=== PATIENT | male | born 1970 | race Caucasian/White ===

== ENCOUNTER 2020-01-03 23:41 | Emergency (ER) | payer BC, OTHER, SELFPAY ==
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
== END 2020-01-04 01:42 | disposition home or self-care (01) ==
LOC: ERS 23:41
DX: M25.462 Effusion, left knee (principal); G47.30 Sleep apnea, unspecified; E11.9 Type 2 diabetes mellitus without complications; V86.99XA Unspecified occupant of other special all-terrain or other off-road motor vehicle injured in nontraffic accident, initial encounter

== ENCOUNTER 2020-01-24 05:52 | Observation (INO) | payer BC, OTHER, SELFPAY ==
[2020-01-22 16:26] VITALS: BMI 36.9
[2020-01-24] MEDS ORDERED: Midazolam HCl 2 mg/2 ml Vial ONE (06:39)
[2020-01-24] MEDS ORDERED: Fentanyl 100 MCG/2 ML VIAL ONE ×4 (06:39→11:18)
[2020-01-24] MEDS ORDERED: Vancomycin 1.5 GRAM/300 ML BAG 1.5 GM/300 ML BAG ONE (07:21)
[2020-01-24] MEDS ORDERED: Ropivacaine 0.2% 550 ML 550 ML NERVE BLCK SCH (08:26)
[2020-01-24] MEDS ORDERED: Ondansetron PF 4 MG/2 ML Vial IVP PRN (08:26)
[2020-01-24] MEDS ORDERED: traMADol HCl 50 MG TAB PO PRN ×2 (08:26)
[2020-01-24] MEDS ORDERED: HYDROcodone/Acetaminophen 10/325 mg Tablet PO PRN ×2 (08:26)
[2020-01-24] MEDS ORDERED: Promethazine HCl 25 MG/ML VIAL IM PRN (08:26)
[2020-01-24] MEDS ORDERED: Zolpidem Tartrate 5 MG TAB PO PRN (08:26)
[2020-01-24] MEDS ORDERED: Acetaminophen 325 MG TAB PO PRN (08:26)
[2020-01-24] MEDS ORDERED: Fentanyl 100 MCG/2 ML VIAL IV PRN (08:27)
[2020-01-24] MEDS ORDERED: SUGAMMADEX SODIUM 200 MG/2 ML VIAL ONE (09:34)
[2020-01-24] MEDS ORDERED: HYDROcodone/Acetaminophen 7.5/325 mg Tablet PO PRN ×2 (10:41)
[2020-01-24] MEDS ORDERED: Milk Of Magnesia 30 ML UDCUP PO PRN (10:41)
[2020-01-24] MEDS ORDERED: Morphine 2 MG/ML SYRINGE SLOW IVP PRN (10:41)
[2020-01-24] MEDS ORDERED: Methocarbamol 500 MG TAB PO PRN (10:41)
[2020-01-24] MEDS ORDERED: Morphine 4 MG/ML VIAL SLOW IVP PRN (10:41)
[2020-01-24] MEDS ORDERED: Bisacodyl 10 MG SUPP PR PRN (10:41)
[2020-01-24] MEDS ORDERED: diphenhydrAMINE 50 MG CAP PO PRN (10:41)
[2020-01-24] MEDS ORDERED: Sodium Chloride 0.9% 1,000 ML IV SCH (10:45)
[2020-01-24] MEDS ORDERED: Labetalol HCl 100 MG/20 ML VIAL ONE (11:08)
[2020-01-24] MEDS: Ketorolac Tromethamine 30 MG/ML VIAL IVP SCH ×3 (13:02→23:04)
[2020-01-24] MEDS: CEFAZOLIN 2 GM in Premix Bag 1 BAG IVPB SCH ×2 (15:18→21:20)
[2020-01-24] MEDS ORDERED: Glycopyrrolate 0.2 MG/ML 5 ML SYRINGE ONE (15:29)
[2020-01-24] MEDS ORDERED: Rocuronium Bromide 10 MG/ML (10ML VIAL) ONE (15:29)
[2020-01-24] MEDS ORDERED: Dexamethasone 20 MG/5 ML VIAL ONE (15:29)
[2020-01-24] MEDS ORDERED: Ondansetron PF 4 MG/2 ML Vial ONE (15:29)
[2020-01-24] MEDS ORDERED: Bupivacaine HCl 0.5%/Epinephrine 1:200,000/PF 30 ml Vial ONE (15:29)
[2020-01-24] MEDS ORDERED: PROPOFOL 200 MG/20 ML VIAL ONE (15:29)
[2020-01-24] MEDS ORDERED: Lidocaine 1% PF 5 ML VIAL ONE (15:29)
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
[2020-01-24] MEDS ORDERED: VILAZODONE HCL 40 MG PO SCH (21:00)
[2020-01-24] MEDS ORDERED: Vilazodone Hcl [Viibryd] 40 MG PO SCH (21:00)
[2020-01-24] MEDS: metFORMIN 500 MG TAB PO SCH (21:20)
[2020-01-24] MEDS: Famotidine 20 MG TAB PO SCH (21:20)
[2020-01-25] MEDS: Ketorolac Tromethamine 30 MG/ML VIAL IVP SCH ×3 (05:28→12:09)
[2020-01-25] MEDS: Famotidine 20 MG TAB PO SCH (08:27)
[2020-01-25] MEDS: metFORMIN 500 MG TAB PO SCH (08:27)
[2020-01-25] MEDS ORDERED: Multivit, Therapeutic 1 TAB PO SCH (09:00)
[2020-01-25] MEDS ORDERED: Aspirin 81 mg Enteric Coated Tablet PO SCH (09:00)
[2020-01-25 16:21] VITALS: BP 147/83; TEMP 98.3
== END 2020-01-25 16:40 | disposition home or self-care (01) ==
LOC: SDC 05:52 → SURG A 10:45
PROVIDERS: ADMIT Orthopaedic Surgery; ATTEND Orthopaedic Surgery
PROC: 0MRP47Z Replacement of Left Knee Bursa and Ligament with Autologous Tissue Substitute, Percutaneous Endoscopic Approach (ICD-10-PCS; principal; 2020-01-25)
PROC: 0SBD4ZZ Excision of Left Knee Joint, Percutaneous Endoscopic Approach (ICD-10-PCS; 2020-01-25)
PROC: 3E0T3BZ Introduction of Anesthetic Agent into Peripheral Nerves and Plexi, Percutaneous Approach (ICD-10-PCS; 2020-01-25)
DX: S83.512A Sprain of anterior cruciate ligament of left knee, initial encounter (principal); S83.422A Sprain of lateral collateral ligament of left knee, initial encounter; S83.242A Other tear of medial meniscus, current injury, left knee, initial encounter; S83.282A Other tear of lateral meniscus, current injury, left knee, initial encounter; G89.18 Other acute postprocedural pain; I10 Essential (primary) hypertension; E11.9 Type 2 diabetes mellitus without complications; E78.5 Hyperlipidemia, unspecified; E66.9 Obesity, unspecified; F32.9 Major depressive disorder, single episode, unspecified; F51.04 Psychophysiologic insomnia; Z79.82 Long term (current) use of aspirin; Z79.84 Long term (current) use of oral hypoglycemic drugs; Z79.899 Other long term (current) drug therapy; Z87.891 Personal history of nicotine dependence; Z88.8 Allergy status to other drugs, medicaments and biological substances; Z91.011 Allergy to milk products
CPT/HCPCS: 36416; 96365; 96375; 96376; A4306; C1713; G0378; J0670; J0690; J1100; J1885; J2001; J2250; J2405; J2704; J2795; J3010; J3370

== ENCOUNTER 2022-02-14 12:28 | Inpatient (IN) | payer OTHER, SELFPAY ==
[~2022-02-14 12:28] MED LIST: ISOVUE-370 76%-LOCM 1 ML ONE
[2022-02-14] MEDS ORDERED: Ondansetron PF 4 MG/2 ML Vial ONE (13:01)
[2022-02-14] MEDS ORDERED: Pantoprazole 40 MG VIAL ONE (13:01)
[2022-02-14 13:17] LABS: #Eosinphils 0.2 thou/uL (0.0-0.7); #Lymphocytes 1.6 thou/uL (1.20-3.40); #Monocytes 0.6 thou/uL (0.11-0.59); #Neutrophils 4.8 thou/uL (1.40-6.50); %Basophils 0.5 % (0.0-1.0); %Eosinophils 2.3 % (0.0-10.0); %Lymphocytes 22.2 % (21.0-51.0); %Monocytes 8.8 % (0.0-10.0); %Neutrophils 66.2 % (42.0-75.0); Hemoglobin 11.1 g/dL (14.0-18.0); Mean Corpuscular HGB CONC 34.1 g/dL (32.0-36.0); Mean Corpuscular Hemoglobin 34.7 pg (27.0-31.0); Mean Platelet Volume 7.6 fL (7.4-10.4); Platelet Count 143 thou/uL (130-400); RBC Distribution Width 11.9 % (11.5-14.5); Red Blood Cell (RBC) Count 3.19 mill/uL (4.70-6.10); White Blood Cell (WBC) Count 7.3 thou/uL (4.8-10.8)
[2022-02-14 13:45] LABS: ALT (SGPT) 53 U/L (8-55); AST (SGOT) 94 U/L (5-34); Albumin 3.6 g/dL (3.5-5.0); Alkaline Phosphatase 76 U/L (40-110); Anion Gap 12 mmol/L (10-20); BUN (Urea Nitrogen) 33 mg/dL (8.4-25.7); Bilirubin, Total 2.9 mg/dL (0.2-1.2); Calc. Creatinine Clearance 0 mL/min (70-130); Calcium 8.6 mg/dL (7.8-10.44); Carbon Dioxide 29 mmol/L (22-29); Chloride 90 mmol/L (98-107); Globulin 3.9 g/dL (2.4-3.5); Glucose 140 mg/dL (70-105); Lipase 22 U/L (8-78); Potassium 3.7 mmol/L (3.5-5.1); Protein, Total 7.5 g/dL (6.0-8.3); Sodium 127 mmol/L (136-145)
[2022-02-14] MEDS ORDERED: Acetaminophen 325 MG TAB PO PRN (15:37)
[2022-02-14] MEDS ORDERED: Ondansetron ODT 4 MG TAB PO PRN (15:37)
[2022-02-14] MEDS ORDERED: Acetaminophen 650 MG Suppository PR PRN (15:37)
[2022-02-14] MEDS ORDERED: Ondansetron PF 4 MG/2 ML Vial IVP PRN (15:37)
[2022-02-14] MEDS ORDERED: Lorazepam 1 MG TAB PO PRN (15:43)
[2022-02-14] MEDS ORDERED: Lorazepam 2 MG/ML VIAL IM PRN (15:43)
[2022-02-14] MEDS ORDERED: Electrolyte Replacement Protocol 1 EACH FS SCH (15:45)
[2022-02-14 16:01] VITALS: BMI 37.3
[2022-02-14] MEDS ORDERED: Electrolyte Replacement Protocol FS PRN (16:15)
[2022-02-14] MEDS ORDERED: Folic Acid 1 MG TAB PO SCH (16:15)
[2022-02-14] MEDS ORDERED: Multivit, Therapeutic 1 TAB PO SCH (16:15)
[2022-02-14 16:24] LABS: Hemoglobin 10.6 g/dL (14.0-18.0)
[2022-02-14 16:39] LABS: Bilirubin, Direct 1.3 mg/dL (0.1-0.3); Magnesium 1.7 mg/dL (1.6-2.6); Phosphorus 2.5 mg/dL (2.3-4.7)
[2022-02-14 16:42] LABS: Troponin I Less than 0.010 ng/mL (< 0.028)
[2022-02-14 16:59] LABS: HBCM Index 0.07 S/CO (0-0.79); HBSAg Index 0.34 S/CO (0-0.99); Hep A IgM AB Non-Reactive (NonReactive); Hep A IgM S/CO 0.23 S/CO (0-0.79); Hep B Surf Ag Non-Reactive S/CO (NonReactive); Hepatitis B Core IgM Abs Non-Reactive (NonReactive)
[2022-02-14 17:07] LABS: Hep C IgG Ab Reflex HepC Qnt (NonReactive); Hep C Index 12.24 S/CO (0-0.79)
[2022-02-14] MEDS: Lorazepam 1 MG TAB PO SCH ×2 (17:07→20:27)
[2022-02-14] MEDS: Thiamine HCl 200 MG/2 ML VIAL SLOW IVP SCH (17:08)
[2022-02-14] MEDS: Sodium Chloride 0.9% 1,000 ML IV SCH (17:17)
[2022-02-14 18:41] LABS: Syphilis Antibody Nonreactive (Nonreactive); Syphilis Antibody Index 0.14 S/CO (<1.00 Non-Reactive)
[2022-02-14] MEDS ORDERED: Magnesium 2 GM/50 ML(in water) 2 GM in Premix Bag 1 BAG IVPB SCH (19:15)
[2022-02-14] MEDS: Pantoprazole 40 MG VIAL IVP SCH (20:26)
[2022-02-14 22:07] LABS: Hemoglobin 9.6 g/dL (14.0-18.0)
[2022-02-14 22:14] LABS: Sodium 129 mmol/L (136-145)
[2022-02-15 00:43] LABS: Amphetamine Not Detected (NotDetected); Barbiturates Screen Not Detected (NotDetected); Benzodiazepine Screen Not Detected (NotDetected); Cocaine Metabolite Screen Not Detected (NotDetected); Methadone Not Detected (NotDetected); Methamphetamine Not Detected (NotDetected); Opiate Screen Not Detected (NotDetected); Oxycodone Screen Not Detected (NotDetected); Phencyclidine (PCP) Not Detected (NotDetected); THC/Cannabinoid Screen Not Detected (NotDetected); Tricyclic Screen Not Detected (NotDetected)
[2022-02-15] MEDS: Lorazepam 1 MG TAB PO SCH ×4 (03:45→20:07)
[2022-02-15 04:26] LABS: #Eosinphils 0.2 thou/uL (0.0-0.7); #Lymphocytes 1.8 thou/uL (1.20-3.40); #Monocytes 0.8 thou/uL (0.11-0.59); #Neutrophils 3.7 thou/uL (1.40-6.50); %Basophils 0.7 % (0.0-1.0); %Eosinophils 2.8 % (0.0-10.0); %Lymphocytes 27.7 % (21.0-51.0); %Monocytes 11.5 % (0.0-10.0); %Neutrophils 57.2 % (42.0-75.0); Mean Corpuscular HGB CONC 33.8 g/dL (32.0-36.0); Mean Corpuscular Hemoglobin 34.8 pg (27.0-31.0); Platelet Count 118 thou/uL (130-400); Platelet Morphology Comment Appears Decreased; RBC Distribution Width 12.1 % (11.5-14.5); Red Blood Cell (RBC) Count 2.59 mill/uL (4.70-6.10); White Blood Cell (WBC) Count 6.5 thou/uL (4.8-10.8)
[2022-02-15 04:27] LABS: ALT (SGPT) 49 U/L (8-55); AST (SGOT) 86 U/L (5-34); Albumin 3.2 g/dL (3.5-5.0); Alkaline Phosphatase 64 U/L (40-110); Anion Gap 9 mmol/L (10-20); BUN (Urea Nitrogen) 20 mg/dL (8.4-25.7); Bilirubin, Total 2.1 mg/dL (0.2-1.2); Calc. Creatinine Clearance 192 mL/min (70-130); Calcium 8.1 mg/dL (7.8-10.44); Carbon Dioxide 27 mmol/L (22-29); Chloride 96 mmol/L (98-107); Globulin 3.5 g/dL (2.4-3.5); Glucose 96 mg/dL (70-105); Magnesium 2.1 mg/dL (1.6-2.6); Potassium 3.3 mmol/L (3.5-5.1); Protein, Total 6.7 g/dL (6.0-8.3); Sodium 129 mmol/L (136-145)
[2022-02-15] MEDS: Potassium Chloride 20 MEQ in Premix Bag 1 BAG IVPB SCH ×2 (06:32→08:52)
[2022-02-15] MEDS: Sodium Chloride 0.9% 1,000 ML IV SCH ×2 (06:32→17:34)
[2022-02-15 08:16] LABS: Hemoglobin 9.3 g/dL (14.0-18.0)
[2022-02-15 08:27] LABS: Sodium 130 mmol/L (136-145)
[2022-02-15] MEDS: Multivit, Therapeutic 1 TAB PO SCH (08:57)
[2022-02-15] MEDS: Folic Acid 1 MG TAB PO SCH (08:57)
[2022-02-15] MEDS: Pantoprazole 40 MG VIAL IVP SCH ×2 (08:57→20:07)
[2022-02-15 14:11] LABS: Sodium 132 mmol/L (136-145)
[2022-02-15] MEDS ORDERED: Lorazepam 1 MG TAB PO PRN (15:43)
[2022-02-15 17:06] LABS: Hemoglobin 9.2 g/dL (14.0-18.0)
[2022-02-15] MEDS: Thiamine HCl 200 MG/2 ML VIAL SLOW IVP SCH (17:34)
[2022-02-15 22:37] LABS: Hemoglobin 9.1 g/dL (14.0-18.0)
[2022-02-15 22:53] LABS: Sodium 132 mmol/L (136-145)
[2022-02-16] MEDS: Sodium Chloride 0.9% 1,000 ML IV SCH (02:10)
[2022-02-16] MEDS: Lorazepam 1 MG TAB PO SCH ×2 (03:50→09:57)
[2022-02-16 05:05] LABS: #Eosinphils 0.2 thou/uL (0.0-0.7); #Lymphocytes 1.4 thou/uL (1.20-3.40); #Monocytes 0.7 thou/uL (0.11-0.59); #Neutrophils 3.3 thou/uL (1.40-6.50); %Basophils 0.4 % (0.0-1.0); %Eosinophils 3.4 % (0.0-10.0); %Lymphocytes 25.5 % (21.0-51.0); %Monocytes 12.1 % (0.0-10.0); %Neutrophils 58.7 % (42.0-75.0); Hemoglobin 8.9 g/dL (14.0-18.0); Mean Corpuscular HGB CONC 33.6 g/dL (32.0-36.0); Mean Corpuscular Hemoglobin 34.9 pg (27.0-31.0); Mean Platelet Volume 7.5 fL (7.4-10.4); Platelet Count 122 thou/uL (130-400); RBC Distribution Width 12.1 % (11.5-14.5); Red Blood Cell (RBC) Count 2.56 mill/uL (4.70-6.10); White Blood Cell (WBC) Count 5.6 thou/uL (4.8-10.8)
[2022-02-16 05:10] LABS: ALT (SGPT) 70 U/L (8-55); AST (SGOT) 115 U/L (5-34); Albumin 3.4 g/dL (3.5-5.0); Alkaline Phosphatase 71 U/L (40-110); Anion Gap 12 mmol/L (10-20); BUN (Urea Nitrogen) 9 mg/dL (8.4-25.7); Bilirubin, Total 1.7 mg/dL (0.2-1.2); Calc. Creatinine Clearance 200 mL/min (70-130); Calcium 8.4 mg/dL (7.8-10.44); Carbon Dioxide 26 mmol/L (22-29); Chloride 99 mmol/L (98-107); Globulin 3.6 g/dL (2.4-3.5); Glucose 102 mg/dL (70-105); Potassium 3.8 mmol/L (3.5-5.1); Sodium 133 mmol/L (136-145)
[2022-02-16] MEDS: Folic Acid 1 MG TAB PO SCH (08:10)
[2022-02-16] MEDS: Multivit, Therapeutic 1 TAB PO SCH (08:10)
[2022-02-16] MEDS: Pantoprazole 40 MG VIAL IVP SCH (08:11)
[2022-02-16] MEDS ORDERED: Lorazepam 1 MG TAB PO PRN (15:43)
[2022-02-16] MEDS ORDERED: Lorazepam 0.5 MG TAB PO SCH (15:45)
[2022-02-16 17:03] VITALS: BP 157/93; TEMP 98
[2022-02-17] MEDS ORDERED: Lorazepam 0.5 MG TAB PO PRN (15:43)
[2022-02-17] MEDS ORDERED: Thiamine 100 MG TAB PO SCH (16:00)
== END 2022-02-16 17:10 | disposition home or self-care (01) | DRG 378 ==
LOC: ERS 12:28 → T4-B 15:05
PROVIDERS: ADMIT Family Medicine; ATTEND Internal Medicine
PROC: 0DB78ZX Excision of Stomach, Pylorus, Via Natural or Artificial Opening Endoscopic, Diagnostic (ICD-10-PCS; principal; 2022-02-15)
PROC: 0W3P8ZZ Control Bleeding in Gastrointestinal Tract, Via Natural or Artificial Opening Endoscopic (ICD-10-PCS; 2022-02-15)
DX: K25.4 Chronic or unspecified gastric ulcer with hemorrhage (principal); E87.1 Hypo-osmolality and hyponatremia; D62 Acute posthemorrhagic anemia; E11.9 Type 2 diabetes mellitus without complications; I10 Essential (primary) hypertension; F41.9 Anxiety disorder, unspecified; F17.210 Nicotine dependence, cigarettes, uncomplicated; F32.A Depression, unspecified; F10.10 Alcohol abuse, uncomplicated; E78.5 Hyperlipidemia, unspecified; K70.10 Alcoholic hepatitis without ascites; K31.9 Disease of stomach and duodenum, unspecified; K26.9 Duodenal ulcer, unspecified as acute or chronic, without hemorrhage or perforation; Z20.822 Contact with and (suspected) exposure to COVID-19; B19.20 Unspecified viral hepatitis C without hepatic coma; Z88.8 Allergy status to other drugs, medicaments and biological substances; Z79.899 Other long term (current) drug therapy; Z79.84 Long term (current) use of oral hypoglycemic drugs
CPT/HCPCS: 36415; 36416; 74177; 80053; 80074; 80306; 82248; 82274; 83690; 83735; 83930; 83935; 84100; 84300; 84484; 84560; 85025; 86780; 86850; 86900; 86901; 87522; 88305; 88342; 93005; 93010; C9113; J2405; J3411; J3475; J3480; J7050; Q9966; U0003; U0005